=== PATIENT | male | born 1990 | race Caucasian/White ===

== ENCOUNTER 2023-07-29 12:12 | Emergency (ER) | payer OTHER, SELFPAY ==
--- NOTE | ~2023-07-29 | CT_ITS ---
EXAMINATION: CT soft tissue neck w con DATE: 07/29/2023 15:10 INDICATION: Fever, unable to open mouth, increasing pain following recent tooth extractions 10 days a go. TECHNIQUE: Computed tomography (CT) of the neck was performed with 75 mL Omnipaque-350 intravenous co ntrast. Automated exposure control and iterative reconstruction technique were employed. The dose-marek gth product was 495.09 mGy-cm. COMPARISON: None FINDINGS: The thyroid gland is unremarkable. The submandibular and parotid glands are symmetric. There is n o cervical lymphadenopathy. Mild enlargement of the right palatine tonsil. The superior mediastinu m is unremarkable. The airway is unremarkable. Parapharyngeal and pre-glottic fat planes are pres erved. Normally enhancing arteries. The orbits are unremarkable. Nodular appearing mucosal thick ening in the bilateral inferior maxillary sinuses, the remaining aerated spaces are clear. Visualiz ed lung parenchyma clear. There is cervical spondylosis. Empty sockets at the bilateral maxillary a nd mandibular third molars, consistent with history of wisdom teeth removal. Some degree of soft tiss ue swelling adjacent to the tooth extractions, without discrete abscess detected. IMPRESSION: Recent extractions, without discrete abscess. Possible mild right palatine tonsil enlargement, correlate clinically. No evidence of peritonsillar a bscess. Reviewed, dictated and finalized at location [facility] [employer] IMPRESSION: Recent extractions, without discrete abscess. Possible mild right palatine tonsil enlargement, correlate clinically. No evide nce of peritonsillar abscess.
[2023-07-29 12:19] VITALS: BP 134/81; PULSE 88; RESP 14; TEMP 36.7; O2SAT 99
[2023-07-29] MEDS: SODIUM CHLORIDE 0.9% IV 1,000 ML 999 ML IV CONT (14:23)
--- NOTE | 2023-07-29 14:42 | ED.GENADULT ---
HPI - General Adult General Chief complaint: Dental/Oral Stated complaint: post dental sx comp Time Seen by Provider: 07/29/23 13:27 History of Present Illness HPI narrative: Layo Richardson is a 33 y/o male who presents [facility] reports of having his wisdom teeth removed [address] Huggins at [facility] - he states he hasn't been able to open is jaw for about 7-8 days and reports he has been febrile since the surgery and was up to 103 last night. He has been able to wiggle medication to take/ denies any difficulty swallowing/ tolerating secretions / able to take fluids but has not been able to eat food since surgery. Related Data Allergies Allergy/AdvReac Type Severity Reaction Status Date / Time No Known Allergies Allergy Unverified 07/22/13 18:14 Review of Systems Review of Systems: CONSTITUTIONAL: Denies fever, chills, or sweats. EYES: Denies visual changes, redness, or discharge. ENT: Denies rhinorrhea, reports pain to jaw and has not been able to open his jaw for 7-8 days CARDIOVASCULAR: Denies chest pain, palpitations, or edema. RESPIRATORY: Denies cough or dyspnea. GASTROINTESTINAL: Denies abdominal pain, nausea, vomiting, or diarrhea. GENITOURINARY: Denies dysuria or hematuria. SKIN: Denies rash or itching. MUSCULOSKELETAL: Denies back pain, joint pain, or myalgia. NEUROLOGIC: Denies headache, numbness, dizziness, or weakness. PSYCHIATRIC: Denies anxiety or depression. Exam Narrative: GENERAL: Well-appearing, and in no acute distress. HEAD: Normocephalic, atraumatic. EYES: PERRLA and EOMI. ENT: Nares clear, no rhinorrhea or epistaxis. Mucous membranes moist. Patient is unable to open mouth to examine oral pharynx NECK: Supple. No adenopathy or masses. No carotid bruits or JVD CHEST: Clear to auscultation. No respiratory distress. No wheezes rales or rhonchi HEART: Regular rate and rhythm. No murmur heard. Normal peripheral pulses. ABDOMEN: Soft, nontender, nondistended, normal active bowel sounds. EXTREMITIES: Normal range of motion. No edema. SKIN: Warm, dry, no rash. NEURO: No focal deficits. Alert and oriented x3. PSYCH: Normal mood and affect. Course Vital Signs Vital signs: Vital Signs Temperature 36.7 C 07/29/23 12:19 Pulse Rate 88 07/29/23 12:19 Respiratory Rate 14 07/29/23 12:19 Blood Pressure 134/81 07/29/23 12:19 Pulse Oximetry 99 07/29/23 12:19 Temperature 36.7 C 07/29/23 12:19 Pulse Rate 80 07/29/23 16:29 Respiratory Rate 16 07/29/23 16:29 Blood Pressure 130/75 07/29/23 16:29 Pulse Oximetry 100 07/29/23 16:29 Medical Decision Making MDM Narrative Medical decision making narrative: patient arrives with reports of having all 4 of his wisdom teeth removed about 10 days ago and has not been able to open his mouth for the past 7-8 days He states that he has had some intermittent fevers as well He denies pain being the issue but feels that his jaw is stuck shut He is tolerating secretions/ able to swallow denies having any pain with swallowing Denies any swelling in his throat Denies ear pain Concern for : abscess/ tonsillar swelling/ peritonsillar abscess/ infection/TMJ Collaborated with Dr. Jean-Baptiste regarding pt's work up. Plan to check labs/ CT of soft tissue neck. CBC - stable CMP - stable Ct neck soft tissues -Recent extractions, without discrete abscess. Possible mild right palatine tonsil enlargement, correlate clinically. No evidence of peritonsillar abscess. With the work up being re-assuring of no acute processes - tried to give a dose of morphine and some Valium to see if that helps relax the muscles for him to open After the medication pt is able to open is mouth more but still not completely Called ENT Dr. Cherry for any other recommendations / or if there is something else that we should be looking for. ENT Dr. Cherry believes this could be related to muscle and continuation of muscle relaxers could help, he als
[2023-07-29 14:45] LABS: Basophils Percent Auto 0.3 % (0.2-1.2); Eosinophils Absolute Auto 0.1 K/mm3 (0-0.3); Eosinophils Percent Auto 0.6 % (0-4.4); Hematocrit 39.1 % (42.0-52.0); Hemoglobin 13.1 g/dL (14.0-18.0); Immature Granulocyte Absolute 0.02 K/mm3 (0.00-0.031); Immature Granulocyte Percent A 0.2 % (0-0.5); Lymphocytes Absolute Auto 1.06 K/mm3 (0.9-3.2); Mean Corpuscular HGB Conc 33.5 g/dl (32-36); Mean Corpuscular Hemoglobin 29.5 pg (26-34); Mean Corpuscular Volume 88.1 fl (80-100); Mean Platelet Volume 10.7 fl (7.4-10.4); Monocytes Absolute Auto 0.9 K/mm3 (0.1-0.6); Monocytes Percent Auto 9.6 % (2.6-8.5); Neutrophils Absolute Auto 6.8 K/mm3 (1.3-6.7); Neutrophils Percent Auto 77.3 % (45.5-73.1); Platelet Count Result 315 k/mm3 (150-375); Red Blood Count 4.44 M/mm3 (4.6-6.20); Red Cell Distribution Width 11.9 % (11.5-14.5); White Blood Count 8.8 K/mm3 (4.5-10.0)
[2023-07-29 14:55] LABS: Alanine Aminotransferase 12 U/L (6-50); Albumin Level 4.6 g/dL (3.5-5.1); Alkaline Phosphatase 65 U/L (38-126); Anion Gap 15 mmol/L (8-16); Aspartate Amino Transferase 17 U/L (17-59); Bilirubin,Total 0.9 mg/dL (0.2-1.3); Blood Urea Nitrogen 7 mg/dL (9-20); Calcium 9.7 mg/dL (8.4-10.2); Carbon Dioxide 26 mmol/L (22-30); Chloride 97 mmol/L (98-107); Estimated CRCL calculation 102 ml/min; Estimated Glomerular Filt Rate > 60; Glucose 97 mg/dL (65-110); Potassium 4.2 mmol/L (3.4-5.0); Sodium 138 mmol/L (137-145)
[2023-07-29 14:56] LABS: Lactic Acid Reflex 0.9 mmol/L (0.7-2.0)
[2023-07-29] MEDS: MORPHINE SULFATE (*CRX) 4 MG/ML INJ IV PUSH (16:24)
[2023-07-29] MEDS: diazePAM (*CRX) 5 MG TABLET PO (16:24)
[2023-07-29 16:29] VITALS: BP 130/75; PULSE 80; RESP 16; O2SAT 100
[2023-07-29 18:31] VITALS: BP 132/81; PULSE 70; RESP 16; O2SAT 100
== END 2023-07-29 18:32 | disposition home or self-care (01) ==
PROVIDERS: Emergency Provider Nurse Practitioner Family
DX: R25.2 Cramp and spasm (principal); Z98.818 Other dental procedure status; R93.89 Abnormal findings on diagnostic imaging of other specified body structures
CPT/HCPCS: 36415; 70491; 80053; 83605; 85025; 96361; 96374; 99284; A9270; J2270; J7030; Q9967